=== PATIENT | male | born 1960 | race Caucasian/White ===

== ENCOUNTER 2023-06-27 07:14 | Day surgery (SDC) | payer OTHER ==
[2023-06-23 10:59] VITALS: BMI 30.6
[2023-06-27] MEDS ORDERED: PROPOFOL 60 ML ONE (10:55)
[2023-06-27] MEDS ORDERED: Lidocaine 1% PF 5 ML VIAL ONE (11:17)
== END 2023-06-27 12:58 | disposition home or self-care (01) ==
LOC: SDC 07:14
PROVIDERS: ATTEND Internal Medicine Gastroenterology
PROC: 0DJD8ZZ Inspection of Lower Intestinal Tract, Via Natural or Artificial Opening Endoscopic (ICD-10-PCS; principal; 2023-06-27)
DX: Z12.11 Encounter for screening for malignant neoplasm of colon (principal); K64.9 Unspecified hemorrhoids
CPT/HCPCS: J2704